=== PATIENT | male | born 1980 | race Caucasian/White ===

== ENCOUNTER 2021-10-24 06:30 | Observation (INO) | payer SELFPAY ==
[~2021-10-24] VITALS: Ht 190 cm; Wt 96.3 kg
[2021-10-24] VITALS (9 sets, daily range): BP systolic 114–187; BP diastolic 67–107
--- NOTE | 2021-10-24 06:57 | ED Chest Pain ---
General Stated Complaint: BOTH ARMS HURTING,HAS HAD STINT PUT IN Source: patient Exam Limitations: no limitations History of Present Illness Date Seen by Provider: Oct 24, 2021 Time Seen by Provider: 06:39 Initial Comments The patient presents to the ER by private conveyance from home with chief complaint about half an hour prior to arrival he began to experience pain running up and down both his arms. He says he is experienced this a few months ago at [place] and was told he was having a stress-induced heart attack. He has had a stent a year or 2 ago at [place]. He does not have a recovery analyst or primary care doctor they have tried 3 different PCPs locally to get him established. He does take Coreg, atorvastatin and lisinopril. He has a history of hypertension, hyperlipidemia, diabetes. He was intolerant to metformin and glipizide. He is not taking anything else for diabetes at this time. He smokes about a pack of cigarettes per day. He is not having nausea fever chills cough shortness of air or exertional dyspnea. His pain was initially a 10 out of 10. He did take his morning medications as well as 81 mg of aspirin. He also noted his blood pressure was high around 220 systolic. Allergies and Home Medications Allergies Coded Allergies: No Known Drug Allergies (Unverified , 10/24/21) Patient Home Medication List Home Medication List Reviewed: Yes Review of Systems Review of Systems Constitutional: No chills, No diaphoresis EENTM: No Blurred Vision, No Double Vision Respiratory: Denies Cough, Denies Shortness of Air Cardiovascular: Chest Pain; Denies Lightheadedness, Denies Palpitations Gastrointestinal: Denies Abdominal Pain, Denies Constipated, Denies Diarrhea, Denies Nausea Genitourinary: Denies Burning, Denies Discharge Musculoskeletal: No back pain, No joint pain Psychiatric/Neurological: Denies Anxiety, Denies Depressed All Other Systems Reviewed Negative Unless Noted: Yes Past Vwtnoud-Kailje-Xgsunv Hx Patient Social History Tobacco Use?: Yes Smoking Status: Current Everyday Smoker Use of E-Cig and/or Vaping dev: No Substance use?: No Alcohol Use?: Yes Alcohol type: Beer Alcohol Frequency: Daily (6/day) Physical Exam Vital Signs Vital Signs - First Documented 10/24/21 06:55 Pulse 104 Resp 20 B/P (MAP) 199/122 (147) Pulse Ox 94 O2 Delivery Room Air Capillary Refill : Height, Weight, BMI Height: '" Weight: lbs. oz. kg; BMI Method: General Appearance: Anxious, Mild Distress HEENT: PERRL/EOMI, Pharynx Normal, Moist Mucous Membranes Neck: Full Range of Motion, Normal Inspection Respiratory: Chest Non Tender, Lungs Clear, Normal Breath Sounds, No Accessory Muscle Use, No Respiratory Distress Cardiovascular: Regular Rate, Rhythm, No Edema, Normal Peripheral Pulses Gastrointestinal: Normal Bowel Sounds, Non Tender, Soft Extremity: Normal Capillary Refill, Normal Inspection, No Pedal Edema Neurologic/Psychiatric: Alert, Oriented x3, Normal Mood/Affect Skin: Normal Color, Warm/Dry Progress/Results/Core Measures Results/Orders Lab Results Laboratory Tests Test 10/24/21 06:50 Range/Units White Blood Count 7.5 4.3-11.0 10^3/uL Red Blood Count 5.75 H 4.30-5.52 10^6/uL Hemoglobin 18.6 H 13.3-17.7 g/dL Hematocrit 53 40-54 % Mean Corpuscular Volume 92 80-99 fL Mean Corpuscular Hemoglobin 32 25-34 pg Mean Corpuscular Hemoglobin Concent 35 32-36 g/dL Red Cell Distribution Width 13.0 10.0-14.5 % Platelet Count 221 130-400 10^3/uL Mean Platelet Volume 10.5 9.0-12.2 fL Immature Granulocyte % (Auto) 0 % Neutrophils (%) (Auto) 68 42-75 % Lymphocytes (%) (Auto) 24 12-44 % Monocytes (%) (Auto) 6 0-12 % Eosinophils (%) (Auto) 1 0-10 % Basophils (%) (Auto) 0 0-10 % Neutrophils # (Auto) 5.1 1.8-7.8 10^3/uL Lymphocytes # (Auto) 1.8 1.0-4.0 10^3/uL Monocytes # (Auto) 0.5 0.0-1.0 10^3/uL Eosinophils # (Auto) 0.1 0.0-0.3 10^3/uL Basophils # (Auto) 0.0 0.0-0.1 10^3/uL Immature Granulocyte # (Auto) 0.0 0.0-0.1 10^3/uL Prothrombin Time 12.4 12.2-14.7 SEC INR Comment 0.9 0.8-1.4 Activated Partial Thromboplast Time 29 24-35 SEC Sodium Level 142 135-145 MMOL/L Potassium Level 3.8 3.6-5.0 MMOL/L Chloride Level 105 98-107 MMOL/L Carbon Dioxide Level 21 21-32 MMOL/L Anion Gap 16 H 5-14 MMOL/L Blood Urea Nitrogen 12 7-18 MG/DL Creatinine 0.87 0.60-1.30 MG/DL Estimat Glomerular Filtration Rate 110 BUN/Creatinine Ratio 14 Glucose Level 169 H 70-105 MG/DL Calcium Level 9.6 8.5-10.1 MG/DL Corrected Calcium 9.3 8.5-10.1 MG/DL Magnesium Level 1.8 1.6-2.4 MG/DL Total Bilirubin 0.7 0.1-1.0 MG/DL Aspartate Amino Transf (AST/SGOT) 22 5-34 U/L Alanine Aminotransferase (ALT/SGPT) 25 0-55 U/L Alkaline Phosphatase 72 40-136 U/L Myoglobin 53.5 10.0-92.0 NG/ML Troponin I < 0.028 <0.028 NG/ML Total Protein 6.9 6.4-8.2 GM/DL Albumin 4.4 3.2-4.5 GM/DL My Orders Orders - ZOË DELGADO Cbc With Automated Diff (10/24/21 06:57) Magnesium (10/24/21 06:57) Chest 1 View, Ap/Pa Only (10/24/21 06:57) Ekg Tracing (10/24/21 06:57) Comprehensive Metabolic Panel (10/24/21 06:57) Myoglobin Serum (10/24/21 06:57) Protime With Inr (10/24/21 06:57) Partial Thromboplastin Time (10/24/21 06:57) O2 (10/24/21 06:57) Monitor-Rhythm Ecg Trace Only (10/24/21 06:57) Lipid Panel (10/25/21 06:00) Ed Iv/Invasive Line Start (10/24/21 06:57) Troponin I Elle (10/24/21 06:57) Nitroglycerin 0.4 Mg Btl 25's (Nitrostat (10/24/21 07:00) Aspirin Chewable Tablet (Baby Aspirin Ch (10/24/21 07:00) Ekg Tracing (10/24/21 08:06) Medications Given in ED Current Medications Medications Dose Ordered Sig/Lorie Route Start Time Stop Time Status Last Admin Dose Admin Aspirin 243 mg ONCE ONCE PO 10/24/21 07:00 10/24/21 07:01 DC 10/24/21 07:23 243 MG Vital Signs/I&O 10/24/21 06:55 Pulse 104 Resp 20 B/P (MAP) 199/122 (147) Pulse Ox 94 O2 Delivery Room Air Progress Progress Note : Time: 06:55 Progress Note Given his significant history there is concern for ACS so we will give him 243 mg of aspirin, nitroglycerin, check labs. Because of the recent notes of his discomfort he will need an observation stay, heart score is at least 4 points even with a negative initial troponin. This puts him at high risk for early Mace. Initial ECG Impression Date: Oct 24, 2021 Initial ECG Impression Time: 06:39 Initial ECG Rate: 103 Initial ECG Rhythm: Normal Sinus Initial ECG Intervals: Normal Initial ECG Impression: Normal Initial ECG Comparisson: No Previous ECG Available Comment Sinus tachycardia, LVH, no clinically relevant ST elevation but there is some slurring of the ST segment in the anterior leads picked up by the machine. EKG : EKG Time: 08:08 Rate: 78 Rhythm: Normal Sinus Intervals: Normal, QT (476) ECG Comparisson: Unchanged ECG Impression: Nonspecific Changes Comment Sinus rhythm with possible early repolarization artifact causing some upward slanting of the ST segment in the anterior leads seen on previous EKG from earlier today. No other clinically relevant ST elevation or depression. Diagnostic Imaging Diagonstic Imaging: Xray Plain Films/CT/US/NM/MRI: chest Comments No acute cardiopulmonary process on 1 view chest x-ray. [facility], [place] NAME: [facility] REC#: [id number] PT STATUS: REG ER : 1980 PHYSICIAN: ZOË DELGADO MD ADMIT DATE: 10/24/21/ER Draft Date of Exam:10/24/21 CHEST 1 VIEW, AP/PA ONLY INDICATION: Shortness of breath. FINDINGS: The lungs are clear. No failure, effusion or pneumothorax. No free air beneath the diaphragms. Cardiomediastinal and hilar contours normal. IMPRESSION: Normal frontal chest x-ray. Dictated on workstation # [id number] Dict: 10/24/21 0749 Trans: 10/24/21 0752 FERNANDO [id number] Interpreted by: MARLIN LLANES Electronically signed by: Reviewed: Reviewed by Me Departure Communication (Admissions) Time/Spoke to Admitting Phy: 07:50 Discussed the case with Dr. Meza agrees to observe the patient with consult to cardiology. Time/Spoke to Consulting Phy: 07:47 Discussed the case with Dr. Campbell and he agrees to consult on the case if medicine will observe. Impression Primary Impression: Unstable angina Additional Impression: Hypertensive urgency, malignant Disposition: ADMITTED INPATIENT Condition: Stable Admissions Decision to Admit Reason: Admit from ER (General) Decision to Admit/Date: Oct 24, 2021 Time/Decision to Admit Time: 07:45 Departure-Patient Inst. Referrals: NO,LOCAL PHYSICIAN (PCP/Family) Primary Care Physician ZOË DELGADO Oct 24, 2021 06:57
[2021-10-24] MEDS ORDERED: NITROGLYCERIN 0.4 MG SL TABS BTL 25'S SL PRN ×2 (07:00→09:00)
[2021-10-24] MEDS ORDERED: ASPIRIN 81 MG CHEW (CHILDREN'S ASA) PO ONE (07:00)
[2021-10-24 07:07] LABS: BASOPHILS % (AUTO) 0 % (0-10); EOSINOPHILS # (AUTO) 0.1 10^3/uL (0.0-0.3); EOSINOPHILS % (AUTO) 1 % (0-10); HEMATOCRIT 53 % (40-54); HEMOGLOBIN 18.6 g/dL (13.3-17.7); LYMPHOCYTES # (AUTO) 1.8 10^3/uL (1.0-4.0); LYMPHOCYTES % (AUTO) 24 % (12-44); MEAN CORPUSCULAR HEMOGLOBIN 32 pg (25-34); MEAN CORPUSCULAR HGB CONC 35 g/dL (32-36); MEAN CORPUSCULAR VOLUME 92 fL (80-99); MEAN PLATELET VOLUME 10.5 fL (9.0-12.2); MONOCYTES # (AUTO) 0.5 10^3/uL (0.0-1.0); MONOCYTES % (AUTO) 6 % (0-12); NEUTROPHILS # (AUTO) 5.1 10^3/uL (1.8-7.8); NEUTROPHILS % (AUTO) 68 % (42-75); PLATELET COUNT 221 10^3/uL (130-400); WHITE BLOOD COUNT 7.5 10^3/uL (4.3-11.0)
[2021-10-24 07:12] LABS: ALBUMIN 4.4 GM/DL (3.2-4.5); POTASSIUM 3.8 MMOL/L (3.6-5.0)
[2021-10-24 07:13] LABS: CALCIUM 9.6 MG/DL (8.5-10.1)
[2021-10-24 07:14] LABS: TOTAL PROTEIN 6.9 GM/DL (6.4-8.2)
[2021-10-24 07:16] LABS: BILIRUBIN,TOTAL 0.7 MG/DL (0.1-1.0)
[2021-10-24 07:18] LABS: CREATININE SERUM 0.87 MG/DL (0.60-1.30); INR 0.9 (0.8-1.4); PROTHROMBIN TIME PATIENT 12.4 SEC (12.2-14.7)
[2021-10-24 07:20] LABS: MAGNESIUM 1.8 MG/DL (1.6-2.4)
--- NOTE | 2021-10-24 07:52 | Diagnostic Imaging Report ---
INDICATION: Shortness of breath. FINDINGS: The lungs are clear. No failure, effusion or pneumothorax. No free air beneath the diaphragms. Cardiomediastinal and hilar contours normal. IMPRESSION: Normal frontal chest x-ray. Dictated by: Dictated on workstation # [id number]
--- NOTE | 2021-10-24 08:41 | Consultation-Cardiology ---
HPI-Cardiology Cardiology Consultation: Date of Consultation 10/24/21 Date of Admission 10/24/21 Attending Physician Mendy Rice MD Admitting Physician No,Local Physician Consulting Physician PHAN MALDONADO JR, MD HPI: Time Seen by a Provider: 08:37 Chief Complaint: Reason for consultation: Bilateral arm pain. I had the pleasure of seeing Raza in the emergency room at [facility] in [place], [place] this morning. He has a known history of coronary artery disease with an acute myocardial infarction around 2015 with a drug- eluting stent to the left anterior descending coronary artery. At the time of his myocardial infarction, his symptom was feeling like there was a pile of weight sitting on his chest. Then in August of this year he developed bilateral arm pain. He ultimately ended up back in the same hospital where he had his stent. During that hospitalization he was told that he had a "stress heart attack". However, he did not undergo a stress test or cardiac catheterization during that hospitalization. He denies having any of the heavy feeling in his chest during that previous hospitalization. He then recently moved to [place]. 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 Earlier this morning he again developed bilateral shoulder and arm pain. He also felt as though his legs were weak. He denies any of the heavy feeling in his chest. He became concerned and came to the emergency room for further evaluation. He took an aspirin at home and when he arrived to the emergency room he was given 3 more chewable aspirin and his arm discomfort subsided. He now feels very weak. He felt some mild shortness of breath with this arm discomfort. He denies paroxysmal nocturnal dyspnea, orthopnea, palpitations, syncope, or ankle edema. Because of the arm discomfort and his history of coronary artery disease, a cardiology consultation was requested. He also reports that he had been on medication for hypertension, hyperlipidemia and type 2 diabetes mellitus in the past. However, the last time he saw his previous primary care physician before moving to [place], his medications were all doubled and he developed side effects and stopped all of his medications except for aspirin. Certain portions of this document may have been dictated utilizing voice recognition technology. Inherent to this technology, typographical and grammatical errors may exist. As much as I am diligent to identify and correct these mistakes, some errors may remain in the document. Review of Systems-Cardiology Review of Systems Other comments Review of 10 organ systems is as per the history of present illness, otherwise negative. All Other Systems Reviewed Negative Unless Noted: Yes JXR-Gpqtmo-Xhwyjf Hx Patient Social History Smoking Status: Current Everyday Smoker Have you traveled recently?: No Alcohol Use?: Yes Past Medical History PMH As described under Assessment. Family Medical History Family Medical History: His father had a myocardial infarction and has a stent in a carotid artery. Allergies and Home Medications Allergies Coded Allergies: glipizide (Verified Adverse Reaction, Unknown, gi upset, 10/24/21) metformin (Verified Adverse Reaction, Unknown, gi upset, 10/24/21) Patient Home Medication List Home Medication List Reviewed: Yes Aspirin (Aspirin EC) 81 Mg Tablet.dr, 81 MG PO DAILY, (Reported) Entered as Reported by: LINDSEY KAY on 10/24/211499 Last Action: Reviewed Atorvastatin Calcium (Atorvastatin Calcium) 40 Mg Tablet, 40 MG PO HS, (Reported) Entered as Reported by: LINDSEY KAY on 10/24/211499 Last Action: Reviewed Carvedilol (Carvedilol) 6.25 Mg Tablet, 6.25 MG PO BID, (Reported) Entered as Reported by: LINDSEY KAY on 10/24/211499 Last Action: Reviewed Ibuprofen (Ibuprofen) 200 Mg Capsule, 400-600 MG PO Q8H PRN for PAIN-MILD (1-4), (Reported) Entered as Reported by: LINDSEY KAY on 10/24/211499 Last Action: Reviewed Lisinopril (Lisinopril) 20 Mg Tablet, 20 MG PO DAILY, (Reported) Entered as Reported by: LINDSEY KAY on 10/24/211499 Last Action: Reviewed Tadalafil (Tadalafil) 2.5 Mg Tablet, 2.5 MG PO UD PRN for ED, (Reported) Entered as Reported by: LINDSEY KAY on 10/24/211499 Last Action: Reviewed Exam Vital Signs Vital Signs Date Time Temp Pulse Resp B/P (MAP) Pulse Ox O2 Delivery O2 Flow Rate FiO2 10/24/21 15:46 37.2 77 18 145/80 (101) 98 Room Air Physical Exam General: Alert. No acute distress. Well nourished and appears stated age. Eye: Extraocular movements are intact. Conjunctivae are clear. There are no xanthelasma. HENT: Normocephalic. Atraumatic. Carotid pulsations 2/2 without bruits. Neck: Jugular venous pressure does not appear elevated. No thyromegaly appreciated. Respiratory: Lungs are clear to auscultation. Respirations are non-labored. Breath sounds are equal. Symmetrical chest wall expansion. Cardiovascular: Normal rate. Regular rhythm. No murmur. No gallop. Point of maximal impulse is not appear displaced. Good pulses equal in all extremities. No edema. Gastrointestinal: Soft. Normal bowel sounds. Skin: Skin turgor is normal. There is no pallor. Musculoskeletal: No kyphosis or scoliosis appreciated. Neurologic: Alert and oriented to person, place, time. Cranial nerves 3-12 appear grossly intact. The patient has good motor tone strength in the upper and lower extremities bilaterally. Psychiatric: Cooperative. Appropriate mood & affect. Labs Laboratory Tests Test 10/24/21 06:50 10/24/21 10:16 10/24/21 10:50 10/24/21 14:23 Range/Units White Blood Count 7.5 4.3-11.0 10^3/uL Red Blood Count 5.75 H 4.30-5.52 10^6/uL Hemoglobin 18.6 H 13.3-17.7 g/dL Hematocrit 53 40-54 % Mean Corpuscular Volume 92 80-99 fL Mean Corpuscular Hemoglobin 32 25-34 pg Mean Corpuscular Hemoglobin Concent 35 32-36 g/dL Red Cell Distribution Width 13.0 10.0-14.5 % Platelet Count 221 130-400 10^3/uL Mean Platelet Volume 10.5 9.0-12.2 fL Immature Granulocyte % (Auto) 0 % Neutrophils (%) (Auto) 68 42-75 % Lymphocytes (%) (Auto) 24 12-44 % Monocytes (%) (Auto) 6 0-12 % Eosinophils (%) (Auto) 1 0-10 % Basophils (%) (Auto) 0 0-10 % Neutrophils # (Auto) 5.1 1.8-7.8 10^3/uL Lymphocytes # (Auto) 1.8 1.0-4.0 10^3/uL Monocytes # (Auto) 0.5 0.0-1.0 10^3/uL Eosinophils # (Auto) 0.1 0.0-0.3 10^3/uL Basophils # (Auto) 0.0 0.0-0.1 10^3/uL Immature Granulocyte # (Auto) 0.0 0.0-0.1 10^3/uL Prothrombin Time 12.4 12.2-14.7 SEC INR Comment 0.9 0.8-1.4 Activated Partial Thromboplast Time 29 24-35 SEC Sodium Level 142 135-145 MMOL/L Potassium Level 3.8 3.6-5.0 MMOL/L Chloride Level 105 98-107 MMOL/L Carbon Dioxide Level 21 21-32 MMOL/L Anion Gap 16 H 5-14 MMOL/L Blood Urea Nitrogen 12 7-18 MG/DL Creatinine 0.87 0.60-1.30 MG/DL Estimat Glomerular Filtration Rate 110 BUN/Creatinine Ratio 14 Glucose Level 169 H 70-105 MG/DL Calcium Level 9.6 8.5-10.1 MG/DL Corrected Calcium 9.3 8.5-10.1 MG/DL Magnesium Level 1.8 1.6-2.4 MG/DL Total Bilirubin 0.7 0.1-1.0 MG/DL Aspartate Amino Transf (AST/SGOT) 22 5-34 U/L Alanine Aminotransferase (ALT/SGPT) 25 0-55 U/L Alkaline Phosphatase 72 40-136 U/L Myoglobin 53.5 10.0-92.0 NG/ML Troponin I < 0.028 0.028 < 0.028 <0.028 NG/ML Total Protein 6.9 6.4-8.2 GM/DL Albumin 4.4 3.2-4.5 GM/DL Glucometer 296 H 70-110 MG/DL Test 10/24/21 15:15 Range/Units Glucometer 142 H 70-110 MG/DL Radiology ECHOCARDIOGRAM 1. Left ventricle: The cavity size is normal. There is mild concentric hypertrophy. Systolic function is mildly reduced. The estimated ejection fraction is 40-45%. Doppler parameters are consistent with abnormal left ventricular relaxation (grade 1 diastolic dysfunction). 2. Regional wall motion abnormality: Akinesis of the apical septal myocardium. 3. Right atrium: The right atrium is mildly dilated at 19 cm. 4. Aortic valve: There is mild aortic valve sclerosis. 5. Atrial septum: The intra-atrial septum is aneurysmal without definitive evidence of a a defect or shunt. 6. Pulmonary arteries: The pulmonary artery pressure cannot be estimated on this study due to inadequate tricuspid regurgitant envelope. ECG Impression ECG Comment Sinus rhythm with nonspecific anterior ST elevation V1-V2. Probable left ventricular hypertrophy. Diagnosis/Problems Diagnosis/Problems (1) Unstable angina Status: Acute Assessment & Plan: His symptoms sound concerning for possible unstable angina. However, he has had 2 negative troponin levels. His echocardiogram shows mild left ventricular systolic dysfunction with an apical wall motion abnormality. I suspect there is a good chance he is having noncardiac chest pain, possibly due to a musculoskeletal disorder or gastroesophageal reflux disease. I will start him on a proton pump inhibitor. Nonetheless, in light of his history, I recommend further evaluation with a nuclear stress test. He had eaten today so we could not perform the test today. I have this scheduled for first thing tomorrow morning. If his stress test is unremarkable, he can be discharged home tomorrow. He should continue on aspirin. In light of the hypertension, I will also start him on low-dose beta-helen. (2) Hypertensive urgency Assessment & Plan: I have started him on low-dose beta-helen. I am concerned about high doses of medication given his history of adverse reactions to medications. (3) Cardiomyopathy Assessment & Plan: His echocardiogram shows mild left ventricular systolic dysfunction. I will start him on carvedilol. I will eventually plan to start him on REYNA inhibitor or ARB but I am concerned about adding too many medications all at once given his previous history of medication noncompliance due to adverse reactions. (4) Mixed hyperlipidemia Assessment & Plan: A lipid panel has been ordered. I suspect he will benefit from at least a low-dose of statin medication. (5) Type 2 diabetes mellitus with complication Assessment & Plan: This is being managed by the hospitalist. (6) Cigarette smoker Assessment & Plan: He needs to quit smoking. He was counseled in this regard. PHAN MALDONADO JR, MD Oct 24, 2021 08:41
[2021-10-24] MEDS ORDERED: ACETAMINOPHEN 325 MG TABLET PO PRN (09:00)
[2021-10-24] MEDS ORDERED: ONDANSETRON 4 MG/2 ML (SDV) Z0FRAN IVP PRN (09:00)
[2021-10-24] MEDS ORDERED: LORazepam 0.5 MG (ATIVAN) TABLET PO PRN (09:00)
[2021-10-24] MEDS ORDERED: morphine INJ 4 MG/ML 1 ML (VIAL/SYRINGE) IV PRN (09:00)
[2021-10-24] MEDS ORDERED: CATHETER FLUSH 10 ML SYR IV PRN (09:00)
[2021-10-24] MEDS ORDERED: inSUlin ASPART (NovoLOG) 1 UNIT/0.01 ML (CHARGE PER UNIT) SC SCH (11:00)
[2021-10-24] MEDS: inSUlin ASPART (NovoLOG) 1 UNIT/0.01 ML (CHARGE PER UNIT) SC SCH ×4 (11:44→20:49)
[2021-10-24] MEDS ORDERED: NICOTINE 7 MG (NICODERM) PATCH TD NR (13:30)
--- NOTE | 2021-10-24 13:54 | History & Physical-Hospitalist ---
History of Present Illness HPI/Chief Complaint Patient is a 41-year-old male with past medical history of coronary artery disease, hypertension, nonsymptomatic diabetes type 2, hyperlipidemia who presented to the emergency department due to severe left arm pain. He has a history of heart attack in 2016. He has not seen a frozen foods manager since 2016 and has not followed with a primary care doctor for a couple of years either. He was off all of his medications for those couple of years as well. He has been on no medications until August of this year when he was admitted in [facility] due to another heart attack. states that in August he had no work-up, no stress test, no echo, and no follow-up. He was started on Coreg, Lipitor, metformin, glipizide and discharged from the hospital. Since that time he has lost 30 pounds unintentionally and has had multiple side effects secondary to starting those medications they believe. He complains of diffuse muscle aches and erectile dysfunction as well. He reports he smokes 1 to 1-1/2 packs/day. They recently moved to [facility] and are attempting to establish with local physicians. They do have an appointment with Dr. Tucker tomorrow. Source: patient, family Exam Limitations: no limitations Date Seen 10/24/21 Time Seen by a Provider: 13:54 Attending Physician Luis Antonio Rice MD PCP No,Local Physician Referring Physician Date of Admission Oct 24, 2021 at 07:50 Home Medications & Allergies Home Medications Reviewed patient Home Medication Reconciliation performed by pharmacy medication reconciliations reactor technician and/or nursing. Patients Allergies have been reviewed. Allergies Allergies Coded Allergies glipizide (Verified Adverse Reaction, Unknown, gi upset, 10/24/21) metformin (Verified Adverse Reaction, Unknown, gi upset, 10/24/21) Past Jevbnsl-Mabljq-Gjtudf Hx Patient Social History Marrital Status: Tobacco Use?: Yes Tobacco type used: Cigarettes Smoking Status: Current Everyday Smoker Use of E-Cig and/or Vaping dev: No Substance use?: No Alcohol Use?: Yes Alcohol type: Beer Alcohol Frequency: Daily Immunizations Up To Date First/Initial COVID19 Vaccinat: Unvaccinated Current Status Communicates: Verbally Primary Language: [place] Preferred Spoken Language: [place] Is interpretation needed?: No Sensory deficits: Vision impairment Implanted or Applied Medical D: Stents Past Medical History Surgeries: Coronary Stent Heart Attack, High Cholesterol, Hypertension Diabetes, Non-Insulin dep Family Medical History Reviewed Nursing Family Hx Review of Systems Constitutional: No chills, No fever EENTM: no symptoms reported Respiratory: no symptoms reported Cardiovascular: see HPI; No chest pain Gastrointestinal: see HPI, other (weight loss) Genitourinary: see HPI Musculoskeletal: muscle pain, muscle weakness Skin: no symptoms reported Psychiatric/Neurological: Anxiety Physical Exam Physical Exam Vital Signs Vital Signs - First Documented 10/24/21 10/24/21 06:55 15:46 Temp 37.2 Pulse 104 Resp 20 B/P (MAP) 199/122 (147) Pulse Ox 94 O2 Delivery Room Air Capillary Refill : Less Than 3 Seconds Height, Weight, BMI Height: '" Weight: lbs. oz. kg; 26.67 BMI Method: General Appearance: No Apparent Distress, WD/WN, Anxious HEENT: PERRL/EOMI, Moist Mucous Membranes; No Scleral Icterus (L), No Scleral Icterus (R) Neck: Normal Inspection, Supple Respiratory: Lungs Clear, No Accessory Muscle Use, No Respiratory Distress Cardiovascular: Regular Rate, Rhythm, No Murmur Gastrointestinal: Normal Bowel Sounds, Non Tender, Soft Extremity: Normal Capillary Refill, No Calf Tenderness, No Pedal Edema Neurologic/Psychiatric: Alert, Oriented x3, Normal Mood/Affect; No Aphasia, No Facial Droop Skin: Normal Color, Warm/Dry Results Results/Procedures Labs Laboratory Tests 10/24/21 06:50 10/25/21 05:41 Patient resulted labs reviewed. Imaging: Reviewed Imaging Report Imaging [facility], [place] NAME: [facility] REC#: [id number] PT STATUS: ADM Cielo : 1980 PHYSICIAN: ZOË DELGADO MD ADMIT DATE: 10/24/21 Signed Date of Exam:10/24/21 CHEST 1 VIEW, AP/PA ONLY INDICATION: Shortness of breath. FINDINGS: The lungs are clear. No failure, effusion or pneumothorax. No free air beneath the diaphragms. Cardiomediastinal and hilar contours normal. IMPRESSION: Normal frontal chest x-ray. Dictated by: Dictated on workstation # [id number] Dict: 10/24/21 0749 Trans: 10/24/21 1145 FERNANDO [id number] Interpreted by: MARLIN LLANES Electronically signed by: MARLIN LLANES 10/24/21 1145 Assessment/Plan Admission Diagnosis Chest pain Admission Status: Observation Assessment and Plan Chest pain CAD HTN HLD Tobacco abuse Cardiology consulted, appreciate recs Troponin negative x2 Echo ordered, completed but report pending Planning for stress test tomorrow Patient has had many side effects from medications that were started after August admission Discussed indications for certain cardiac meds and that pending tests results some may still be indicated but will have to see what his test results show and then have shared decision making conversation NIDDMII Has had multiple issues since starting Glipizide and Metformin Again discussed their indications and benefits but given side effects will hold Insulin was ordered in ER for BS of 296 but they declined given he had just eaten We discussed that if it continues to rise we'll have to discuss insulin use but will just monitor for now as they are committed to lifestyle changes to control BS Erectile dysfunction Has an appt with Dr Emmanuel tomorrow at 4pm that they would very much like to keep If testing ok will plan to DC for that appt unless further inpatient work up is warranted Anxiety Pt reports anxiety due to having to stay in room Discussed risks of going outside and not being closely monitored- he expressed understanding and signed paperwork to go outside LUIS ANTONIO RICE MD Oct 24, 2021 13:54
[2021-10-24] MEDS ORDERED: ATOR40TA70 PO (15:00)
[2021-10-24] MEDS ORDERED: LISI20TA26 PO (15:00)
[2021-10-24] MEDS ORDERED: TADA2.5T3 PO (15:00)
[2021-10-24] MEDS ORDERED: CARV6.252 PO (15:00)
[2021-10-24] MEDS ORDERED: ASPI-1238 PO (15:00)
[2021-10-24] MEDS ORDERED: IBUP-2185 PO (15:00)
[2021-10-24] MEDS: PANTOPRAZOLE 40 MG (PROTONIX) TAB PO NR ×2 (18:37→18:43)
[2021-10-24] MEDS: CATHETER FLUSH 10 ML SYR IV SCH ×2 (18:45→22:00)
[2021-10-24] MEDS: IBUPROFEN 600 MG (MOTRIN) TAB PO SCH (22:58)
[2021-10-25] VITALS (8 sets, daily range): BP systolic 161–179; BP diastolic 94–106
[2021-10-25] MEDS: IBUPROFEN 600 MG (MOTRIN) TAB PO SCH ×3 (05:00→17:15)
[2021-10-25] MEDS: CATHETER FLUSH 10 ML SYR IV SCH ×3 (05:15→21:54)
[2021-10-25 05:54] LABS: BASOPHILS % (AUTO) 0 % (0-10); EOSINOPHILS # (AUTO) 0.1 10^3/uL (0.0-0.3); EOSINOPHILS % (AUTO) 1 % (0-10); HEMATOCRIT 47 % (40-54); HEMOGLOBIN 16.3 g/dL (13.3-17.7); LYMPHOCYTES # (AUTO) 2.5 10^3/uL (1.0-4.0); LYMPHOCYTES % (AUTO) 29 % (12-44); MEAN CORPUSCULAR HEMOGLOBIN 32 pg (25-34); MEAN CORPUSCULAR HGB CONC 34 g/dL (32-36); MEAN CORPUSCULAR VOLUME 93 fL (80-99); MEAN PLATELET VOLUME 10.9 fL (9.0-12.2); MONOCYTES # (AUTO) 0.6 10^3/uL (0.0-1.0); MONOCYTES % (AUTO) 7 % (0-12); NEUTROPHILS # (AUTO) 5.4 10^3/uL (1.8-7.8); NEUTROPHILS % (AUTO) 63 % (42-75); PLATELET COUNT 188 10^3/uL (130-400); WHITE BLOOD COUNT 8.6 10^3/uL (4.3-11.0)
[2021-10-25] MEDS: inSUlin ASPART (NovoLOG) 1 UNIT/0.01 ML (CHARGE PER UNIT) SC SCH (06:00)
[2021-10-25 06:05] LABS: POTASSIUM 3.6 MMOL/L (3.6-5.0)
[2021-10-25 06:06] LABS: CALCIUM 8.7 MG/DL (8.5-10.1)
[2021-10-25 06:10] LABS: CREATININE SERUM 0.78 MG/DL (0.60-1.30)
[2021-10-25] MEDS ORDERED: REGADENOSON 0.4 MG/5 ML SYR (LEXISCAN) IV ONE ×2 (08:06→08:15)
--- NOTE | 2021-10-25 09:57 | NUCLEAR STRESS TEST ---
REGADENOSON NUCLEAR STRESS Date of procedure: 10/25/2021. Primary care provider: No primary care physician Admitting physician: Mendy Rice MD. INDICATION: Unstable angina. BASELINE ELECTROCARDIOGRAM: Sinus rhythm with nonspecific intraventricular conduction delay and diffuse, nonspecific ST-T wave changes. STRESS TEST PROCEDURE: This was initially intended to be an exercise nuclear stress test but the patient could not attain his target heart rate. As such, we change this over to a regadenoson nuclear stress test. The patient was administered 0.4 mg of intravenous Regadenoson. The resting heart rate was 74 bpm and the peak heart rate was 100 bpm. The resting blood pressure was 172/91 mmHg and the minimum blood pressure was 143/96 mmHg. This represents a normal heart rate and a normal blood pressure response to Regadenoson. The test was stopped due to the protocol. There was no chest discomfort during the test. There were no arrhythmias during the test. There were no significant stress induced electrocardiogram changes. NUCLEAR PROCEDURE: The patient was administered 10.2 mCi of intravenous techn etium 99m Tetrofosmin at rest for the rest images. The patient was subsequently administered 32.1 mCi of intravenous technetium 99m Tetrofosmin at peak stress for the stress images. Following an appropriate wait after each injection, imaging was obtained. The images were subsequently processed and reformatted in the usual views. Gated imaging was obtained. The image quality was adequate with a mild degree of gastrointestinal artifact. CT attenuation correction was used as a adjunct to standard imaging. Both the corrected and uncorrected images were reviewed for interpretation. NUCLEAR RESULTS: There was a large, severe intensity, partially reversible mid to distal anterior and apical defect with a moderate amount of inducible ischemia with a summed stress score of 20 and a summed difference score of 8. The left ventricle was dilated with an end-diastolic volume of 180 mL and an end-systolic volume of 124 mL. There was no evidence of transient ischemic dilatation. The TID ratio was 1.22. There was moderate global hypokinesis with a calculated ejection fraction of 31%. IMPRESSION: 1. Normal heart rate and blood pressure response to regadenoson. 2. There was no chest discomfort, arrhythmias, or electrocardiogram changes during the test. 3. The left ventricle was dilated. 4. There was a large, severe intensity, partially reversible mid to distal anterior and apical defect with a moderate amount of inducible ischemia with a summed stress score of 20 and a summed difference score of 8. 5. There was moderate global hypokinesis with a calculated ejection fraction of 31%. 6. This is an abnormal result representing an overall high risk for possible future coronary ischemic events. Clinical correlation is suggested. Certain portions of this document may have been dictated utilizing voice recognition technology. Inherent to this technology, typographical and grammatical errors may exist. As much as I am diligent to identify and correct these mistakes, some errors may remain in the document. PHAN MALDONADO JR, MD Oct 25, 2021 09:57
[2021-10-25] MEDS: PANTOPRAZOLE 40 MG (PROTONIX) TAB PO SCH (09:58)
[2021-10-25] MEDS: ASPIRIN E.C. 81 MG (ECOTRIN) TAB PO SCH (09:59)
--- NOTE | 2021-10-25 09:59 | Cardiology Progress Note ---
Progress Note-Cardiology Events since last exam Date Seen by Provider: Oct 25, 2021 Time Seen by Provider: 08:00 Events since last exam I am following him due to coronary artery disease with bilateral arm and lexii ulder pain. He states that his arm and shoulder discomfort has resolved. He feels very tired from a lack of sleep since being in the hospital. He denies dyspnea, palpitations, syncope, or ankle edema. We had him undergo a nuclear stress test earlier today and his legs became very weak during stage III of the treadmill protocol and his stress test was changed over to a pharmacological stress test. He and his seem to be focused more on medication side effects as opposed to his various medical illnesses. Certain portions of this document may have been dictated utilizing voice recognition technology. Inherent to this technology, typographical and grammatical errors may exist. As much as I am diligent to identify and correct these mistakes, some errors may remain in the document. Vitals Last set of Vitals Signs Vital Signs Labs Labs Laboratory Tests 10/25/21 05:41 Exam Vital Signs Vital Signs Date Time Temp Pulse Resp B/P (MAP) Pulse Ox O2 Delivery O2 Flow Rate FiO2 10/25/21 16:43 36.8 72 18 170/100 (123) 97 Room Air Physical Exam General: Alert. No acute distress. Eye: No xanthelasma. HENT: Normocephalic. Neck: Jugular venous pressure does not appear elevated. Respiratory: Lungs are clear to auscultation. Respirations are non-labored. Breath sounds are equal. Symmetrical chest wall expansion. Cardiovascular: Normal rate. Regular rhythm. No murmur. No gallop. No edema. Gastrointestinal: Soft. Normal bowel sounds. Skin: Warm. Dry. Neurologic: Alert and oriented to person, place, time. Cranial nerves 3-11 grossly intact. Psychiatric: Cooperative. He is fairly anxious. Labs Laboratory Tests Test 10/24/21 18:55 10/24/21 20:35 10/25/21 05:41 10/25/21 10:41 Range/Units Troponin I < 0.028 <0.028 NG/ML Glucometer 260 H 156 H 70-110 MG/DL White Blood Count 8.6 4.3-11.0 10^3/uL Red Blood Count 5.10 4.30-5.52 10^6/uL Hemoglobin 16.3 13.3-17.7 g/dL Hematocrit 47 40-54 % Mean Corpuscular Volume 93 80-99 fL Mean Corpuscular Hemoglobin 32 25-34 pg Mean Corpuscular Hemoglobin Concent 34 32-36 g/dL Red Cell Distribution Width 12.9 10.0-14.5 % Platelet Count 188 130-400 10^3/uL Mean Platelet Volume 10.9 9.0-12.2 fL Immature Granulocyte % (Auto) 0 % Neutrophils (%) (Auto) 63 42-75 % Lymphocytes (%) (Auto) 29 12-44 % Monocytes (%) (Auto) 7 0-12 % Eosinophils (%) (Auto) 1 0-10 % Basophils (%) (Auto) 0 0-10 % Neutrophils # (Auto) 5.4 1.8-7.8 10^3/uL Lymphocytes # (Auto) 2.5 1.0-4.0 10^3/uL Monocytes # (Auto) 0.6 0.0-1.0 10^3/uL Eosinophils # (Auto) 0.1 0.0-0.3 10^3/uL Basophils # (Auto) 0.0 0.0-0.1 10^3/uL Immature Granulocyte # (Auto) 0.0 0.0-0.1 10^3/uL Sodium Level 140 135-145 MMOL/L Potassium Level 3.6 3.6-5.0 MMOL/L Chloride Level 105 98-107 MMOL/L Carbon Dioxide Level 22 21-32 MMOL/L Anion Gap 13 5-14 MMOL/L Blood Urea Nitrogen 11 7-18 MG/DL Creatinine 0.78 0.60-1.30 MG/DL Estimat Glomerular Filtration Rate 113 BUN/Creatinine Ratio 14 Glucose Level 124 H 70-105 MG/DL Calcium Level 8.7 8.5-10.1 MG/DL Triglycerides Level 166 H <150 MG/DL Cholesterol Level 182 < 200 MG/DL LDL Cholesterol Direct 119 1-129 MG/DL VLDL Cholesterol 33 5-40 MG/DL HDL Cholesterol 49 40-60 MG/DL Test 10/25/21 15:35 Range/Units Glucometer 135 H 70-110 MG/DL Radiology REGADENOSON NUCLEAR STRESS TEST (10/25/2021): 1. Normal heart rate and blood pressure response to regadenoson. 2. There was no chest discomfort, arrhythmias, or electrocardiogram changes during the test. 3. The left ventricle was dilated. 4. There was a large, severe intensity, partially reversible mid to distal anterior and apical defect with a moderate amount of inducible ischemia with a summed stress score of 20 and a summed difference score of 8. 5. There was moderate global hypokinesis with a calculated ejection fraction of 31%. 6. This is an abnormal result representing an overall high risk for possible future coronary ischemic events. Clinical correlation is suggested. Diagnosis/Problems Diagnosis/Problems (1) Unstable angina Status: Acute Assessment & Plan: His symptoms sound concerning for possible unstable angina. However, his troponin levels were negative. Nonetheless, his nuclear stress test showed a large, partly reversible anterior and apical defect with a moderate amount of inducible ischemia with a depressed ejection fraction. As such, I recommend further evaluation with a cardiac catheterization. I have explained the benefits and risks of the procedure to the patient and his . We will proceed with the test in the morning. (2) Hypertensive urgency Assessment & Plan: I have started him on low-dose beta-helen. I am concerned about high doses of medication given his history of adverse reactions to medications. Now he and his want to change the medication due to side effects from his carvedilol and lisinopril in the past. (3) Cardiomyopathy Assessment & Plan: His echocardiogram shows mild left ventricular systolic dysfunction and his nuclear stress test showed moderate left ventricular systolic dysfunction. I will change the carvedilol to metoprolol succinate and change lisinopril which she was taking at home over to losartan. This is assuming the patient and his will be agreeable. (4) Mixed hyperlipidemia Assessment & Plan: I recommend he continue atorvastatin which he was taking at home. (5) Type 2 diabetes mellitus with complication Assessment & Plan: This is being managed by the hospitalist. (6) Cigarette smoker Assessment & Plan: He needs to quit smoking. He was counseled in this regard. PHAN MALDONADO JR, MD Oct 25, 2021 09:59
[2021-10-25] MEDS ORDERED: NICOTINE 7 MG (NICODERM) PATCH TD ONE (10:15)
--- NOTE | 2021-10-25 12:59 | Progress Note - Hospitalist ---
Subjective HPI/CC On Admission Date Seen by Provider: Oct 25, 2021 Time Seen by Provider: 10:00 Patient is a 41-year-old male with past medical history of coronary artery disease, hypertension, nonsymptomatic diabetes type 2, hyperlipidemia who presented to the emergency department due to severe left arm pain. He has a h istory of heart attack in 2015. He has not seen a machine bander and cellophaner since 2017 and has not followed with a primary care doctor for a couple of years either. He was off all of his medications for those couple of years as well. He has been on no medications until August of this year when he was admitted in [facility] due to another heart attack. states that in August he had no work-up, no stress test, no echo, and no follow-up. He was started on Coreg, Lipitor, metformin, glipizide and discharged from the hospital. Since that time he has lost 30 pounds unintentionally and has had multiple side effects secondary to starting those medications they believe. He complains of d iffuse muscle aches and erectile dysfunction as well. He reports he smokes 1 to 1-1/2 packs/day. They recently moved to [facility] and are attempting to establish with local physicians. They do have an appointment with Dr. Tucker tomorrow. Subjective/Events-last exam Pt just back from stress test and informed it was abnormal. Dr Campbell at bedside as well. Discussed plan for a cath. Patient mostly just sitting in bed with his head hung. answers most questions. They were hopeful to leave to make it to Dr Emmanuel's appt but given need to stay they are worried about missing it. I called and spoke with Dr Emmanuel who will see them inpatient. Objective Exam Vital Signs Vital Signs Date Time Temp Pulse Resp B/P (MAP) Pulse Ox O2 Delivery O2 Flow Rate FiO2 10/25/21 11:25 36.4 76 18 171/104 (126) 99 Room Air Capillary Refill : Less Than 3 Seconds General Appearance: No Apparent Distress, WD/WN Respiratory: Lungs Clear, No Respiratory Distress Cardiovascular: Regular Rate, Rhythm, No Murmur Neurologic/Psychiatric: Alert, Oriented x3 Results/Procedures Lab Laboratory Tests 10/25/21 05:41 Patient resulted labs reviewed. Imaging: Reviewed Imaging Report Assessment/Plan Assessment and Plan Assess & Plan/Chief Complaint Chest pain CAD HTN HLD Tobacco abuse Cardiology consulted, appreciate recs Troponin negative x2 Echo with EF of 40% Stress test abnormal, cath recommended-planning for tomorrow Patient has had many side effects from medications that were started after August admission Continue coreg NIDDMII Has had multiple issues since starting Glipizide and Metformin Again discussed their indications and benefits but given side effects will hold Insulin was ordered but patient declined, fasting blood sugar was 124, DC-ed insulin order as he refuses Erectile dysfunction Has an appt with Dr Emmanuel today at 4pm Dr Emmanuel saw them today inpatient Anxiety Pt reports anxiety due to having to stay in room Discussed risks of going outside and not being closely monitored- he expressed understanding and signed paperwork to go outside Ativan LUIS ANTONIO Baltazar MD Oct 25, 2021 12:59
--- NOTE | 2021-10-25 13:20 | CONSULTATION REPORT ---
DATE OF SERVICE: 10/25/2021 ATTENDING PHYSICIAN: Dr. Rice. SUMMARY: A 41-year-old white man who was supposed to see me at the office today because of erectile dysfunction, was admitted to the hospital because of chest pain. He does have history of coronary artery disease, hypertension, type 2 diabetes, hyperlipidemia and history of heart attack in 2016, had a stent put previously, but he has not been followed up with cardiology well. MEDICATIONS: His home medications were reviewed. ALLERGIES: He has no known drug allergies. SOCIAL HISTORY: He is , still smokes cigarettes, drinks beer. PAST SURGICAL HISTORY: Coronary stent. FAMILY HISTORY: Noncontributory. REVIEW OF SYSTEMS: No other complaints. PHYSICAL EXAMINATION: VITAL SIGNS: Per chart. GENERAL: Well nourished, well developed, in no acute distress. HEENT: Head is normocephalic. ENT unremarkable. NECK: Supple, no bruits. CHEST: Clear, nontender. HEART: Regular rate and rhythm, no murmur. ABDOMEN: Soft, nontender. EXTREMITIES: Lower extremity, no edema or cyanosis. NEUROLOGIC: Grossly intact. Oriented x3. RECTAL: Deferred at this point. His labs and chest x-ray were reviewed. IMPRESSION: 1. Erectile dysfunction secondary to diabetes and atherosclerotic heart disease. 2. Medical illnesses per history. PLAN: I did have a long discussion with him and his about or what available for erectile dysfunction and that will be able to show him and give him brochure about at the office and also wanted to wait and see what the results of his cardiac workup come up with to make sure we do not jeopardize his cardiac status for his erectile dysfunction. They fully understand. We will see what the cardiac cath report tomorrow and manage accordingly. CC: Dr. Rice -- requested, unable to deliver. Job ID: [id number] DocumentID: [id number] Dictated Date: 10/25/2021 11:54:43 Financial Writer Date: 10/25/2021 13:19:37 Dictated By: DENY GLORIA MD
[2021-10-25] MEDS ORDERED: NICOTINE PATCH REMOVAL TP SCH (13:30)
[2021-10-25] MEDS ORDERED: LOSARTAN 25 MG (COZAAR) TAB PO SCH (16:45)
[2021-10-25] MEDS ORDERED: amLODIPine 10 MG (NORVASC) TAB PO ONE (20:45)
[2021-10-25] MEDS ORDERED: ROSUVASTATIN 20 MG (CRESTOR) TABLET PO SCH (21:00)
[2021-10-25] MEDS ORDERED: OXYMETAZOLINE (AFRIN) 0.05% NA 30 ML BTL PRN (22:45)
[2021-10-26 00:12] VITALS: BP 146/87
[2021-10-26 03:48] VITALS: BP 146/87
[2021-10-26] MEDS: CATHETER FLUSH 10 ML SYR IV SCH (05:12)
[2021-10-26] MEDS: IBUPROFEN 600 MG (MOTRIN) TAB PO SCH ×3 (05:12→11:00)
[2021-10-26 05:41] LABS: HEMATOCRIT 47 % (40-54); HEMOGLOBIN 16.3 g/dL (13.3-17.7); MEAN CORPUSCULAR HEMOGLOBIN 33 pg (25-34); MEAN CORPUSCULAR HGB CONC 35 g/dL (32-36); MEAN CORPUSCULAR VOLUME 94 fL (80-99); MEAN PLATELET VOLUME 11.2 fL (9.0-12.2); PLATELET COUNT 197 10^3/uL (130-400); WHITE BLOOD COUNT 9.7 10^3/uL (4.3-11.0)
[2021-10-26 06:00] LABS: CALCIUM 8.8 MG/DL (8.5-10.1)
[2021-10-26 06:04] LABS: CREATININE SERUM 0.78 MG/DL (0.60-1.30)
[2021-10-26 07:41] VITALS: BP 151/95
[2021-10-26] MEDS ORDERED: HEParin (CATH LAB) 2,000 ML IV ONE (07:56)
[2021-10-26] MEDS ORDERED: LIDOCAINE 1% INJ 20 ML VIAL ONE (07:56)
[2021-10-26] MEDS ORDERED: NS IV 1000 ML 0 ML ONE (07:56)
[2021-10-26] MEDS ORDERED: NS IV 1000 ML 1,000 ML IV ONE (08:00)
[2021-10-26] MEDS: ASPIRIN E.C. 81 MG (ECOTRIN) TAB PO SCH (08:02)
[2021-10-26] MEDS: PANTOPRAZOLE 40 MG (PROTONIX) TAB PO SCH (08:02)
[2021-10-26] MEDS ORDERED: LOSARTAN 25 MG (COZAAR) TAB PO SCH (09:00)
--- NOTE | 2021-10-26 09:42 | Pre-Op Note & Conscious Sedat ---
Pre-Operative Progress Note H&P Reviewed The H&P was reviewed, patient examined and no changes noted. Date H&P Reviewed: Oct 26, 2021 Time H&P Reviewed: 09:41 Pre-Op Diagnosis: Coronary artery with unstable angina and cardiomyopathy And abnormal stress test Conscious Sedation Pre-Proced Time 09:42 ASA Score 2 For ASA 3 and 4: Consider anesthesia and medical clearance. Also, for patients with a history of failed moderate sedation consider anesthesia. Airway Lungs Heart ASA score ASA 1: a normal healthy patient ASA 2: a patient with a mild systemic disease (mid diabetes, controlled hypertension, obesity ASA 3: a patient with a severe systemic disease that limits activity (angina, COPD, prior Myocardial infarction) ASA 4: a patient with an incapacitating disease that is a constant threat to life (CHF, renal failure) ASA 5: a moribund patient not expected to survive 24 hrs. (ruptured aneurysm) ASA 6: a declared brain- patient whose organs are being harvested. For emergent operations, add the letter E after the classification Mallampati Classification Grade 2 Sedation Plan Analgesia, Amnesia, Plan communicated to team members, Discussed options with patient/fam, Discussed risks with patient/fam The patient is an appropriate candidate to undergo the planned procedure, sedation, and anesthesia. The patient immediately re-assessed prior to indication. PHAN MALDONADO JR, MD Oct 26, 2021 09:42
--- NOTE | 2021-10-26 10:12 | Progress Note - Urology ---
Progress Note-Urology Progress Notes/Assess & Plan Progress/Assessment & Plan CARDIAC CATH IN 1 HOUR. OFFICE IN 1-2 WEEKS Final Diagnosis ED DENY GOLRIA MD Oct 26, 2021 10:12
[2021-10-26] MEDS ORDERED: MIDAZOLAM 5 MG/5 ML (VERSED) VIAL ONE (10:41)
[2021-10-26] MEDS ORDERED: fentaNYL INJ 100 MCG/2 ML AMP ONE (10:41)
[2021-10-26] MEDS ORDERED: VERAPAMIL 5 MG/2 ML (CALAN) VIAL IV ONE (10:46)
[2021-10-26] MEDS ORDERED: HEParin 1000 UNIT/ML (10ML VIAL) FOR BOLUS ONE (10:46)
[2021-10-26] MEDS ORDERED: NITRO DRIP 25000 MCG/D5W 250 ML IV ONE (10:47)
[2021-10-26] MEDS ORDERED: NS IV 1000 ML 1,000 ML IV SCH (11:45)
--- NOTE | 2021-10-26 11:47 | Cardiac Cath Report ---
CARDIAC CATHETERIZATION DATE OF PROCEDURE: 10/26/2021 INDICATION: Coronary artery disease with unstable angina. HISTORY: The patient is a 41 year old male with a known history of coronary artery disease who suffered a myocardial infarction in 2016 that was treated with 1 drug-eluting stent to the mid left anterior descending coronary artery. He presented to our hospital with bilateral shoulder pain concerning for possible angina. He had negative troponin levels. He underwent an echocardiogram that showed mild left ventricular systolic dysfunction with an estimated ejection fraction of 40-45%. On 10/25 he underwent a nuclear stress test that showed a large, partially reversible mid to distal anterior and apical defect with a moderate amount of inducible ischemia with moderate left ventricular systolic dysfunction with a calculated ejection fraction of 31%. In light of these findings, he is now referred for further evaluation with a cardiac catheterization. PROCEDURES PERFORMED: 1. Left heart catheterization with hemodynamic measurements. 2. Diagnostic [place] coronary angiography. PROCEDURE DESCRIPTION: After informed consent and in the fasting state, left heart catheterization was performed through the right radial artery utilizing a 6 [place] system by percutaneous approach. Standard 5 [place] Lesley catheters were utilized for the diagnostic portion of the procedure. All catheters were exchanged over a guidewire. Following the procedure, a vascular band was applied to the radial artery access site and the sheath was removed with good hemostasis. RESULTS: HEMODYNAMICS: The aortic pressure was 136/86 mmHg. The left ventricular pressure was 143/0 mmHg with a left ventricular end diastolic pressure of 15 mmHg. There was no significant pressure gradient upon pullback across the aortic valve. CORONARY ANGIOGRAPHY: The coronary arteries are moderately calcified. Left main coronary artery: Free of significant disease. Left anterior descending coronary artery: There was a stent in the mid-segment which was free of significant disease. Left circumflex coronary artery: There was a 50% in the proximal segment and a 50% stenosis in the mid portion of the vessel proximal to the bifurcation of 2 obtuse marginal branches. The first obtuse marginal branch contained a long 50% stenosis proximally. The second obtuse marginal branch contained 2 sequential 80% stenoses with MEJIA-3 flow. Right coronary artery: Dominant and free of significant disease. IMPRESSION: 1. Mildly elevated left ventricular end diastolic pressure. 2. Patent stent in the mid left anterior descending coronary artery. 3. Severe calcific disease of the second obtuse marginal branch. 4. The patient is known to have mild to moderate left ventricular systolic dysfunction as outlined above. 5. I recommend staged intervention to the second obtuse marginal branch with atherectomy and stent placement. Certain portions of this document may have been dictated utilizing voice recognition technology. Inherent to this technology, typographical and grammatical errors may exist. As much as I am diligent to identify and correct these mistakes, some errors may remain in the document. PHAN MALDONADO JR, MD Oct 26, 2021 11:47
[2021-10-26] MEDS ORDERED: CLOPIDOGREL 300 MG (PLAVIX) TABLET PO NR (12:15)
--- NOTE | 2021-10-26 13:23 | Discharge Summary ---
Diagnosis/Chief Complaint Date of Admission Oct 24, 2021 at 07:50 Date of Discharge Admission Diagnosis Chest pain Primary Care No,Local Physician Discharge Diagnosis (1) Unstable angina Status: Acute (2) Hypertensive urgency (3) Cardiomyopathy (4) Mixed hyperlipidemia (5) Type 2 diabetes mellitus with complication (6) Cigarette smoker Discharge Summary Discharge Physical Exam Allergies: Coded Allergies: glipizide (Verified Adverse Reaction, Unknown, gi upset, 10/24/21) metformin (Verified Adverse Reaction, Unknown, gi upset, 10/24/21) Vitals & I&Os General Appearance: No Apparent Distress, WD/WN Cardiovascular: Regular Rate, Rhythm, No Murmur Neurologic/Psychiatric: Alert, Oriented x3 Hospital Course Pt was admitted to the hospital due to chest pain with a history of coronary artery disease. He had previously been admitted for a "stress heart attack" per family this year at an outside hospital. He was started on multiple medications then but due to side effects had stopped taking some. He fortunately had multiple negative troponins but given history had a stress test that was considered high risk. He then underwent cardiac cath with Dr Campbell. This revealed a patent stent but disease to the second obtuse marginal branch for which Dr Campbell recommended staged intervention as an outpatient. Echo was performed which revealed an EF of 40%. Heart failures medications were recommended as below. Unfortunately patient elected to leave the hospital against medical advice but had previously been given information for primary care follow up with local PCPs and follow up with Dr Campbell. He was found to have elevated blood sugars consistent with DM but elected treatment with diet and lifestyle and declined medications.Of note he was to have an appointment with Dr Emmanuel for erectile dysfunction during this hospital stay Dr Emmanuel was consulted to see him inpatient instead. Labs (last 24 hrs) Patient resulted labs reviewed. Pending Labs Imaging: Reviewed Imaging Report Discussion & Recommendations Discharge Planning: >30 minutes discharge planning Discharge Home Medications: Active Scripts Active Metoprolol Succinate 25 Mg Tab.er.24h 25 Mg PO DAILY Losartan Potassium 25 Mg Tablet 25 Mg PO DAILY Rosuvastatin Calcium 20 Mg Tablet 40 Mg PO HS Clopidogrel (Clopidogrel Bisulfate) 75 Mg Tablet 75 Mg PO DAILY Aspirin EC (Aspirin) 81 Mg Tablet. 81 Mg PO DAILY Reported Ibuprofen 200 Mg Capsule 400-600 Mg PO Q8H PRN Tadalafil 2.5 Mg Tablet 2.5 Mg PO UD PRN Instructions to patient/family Please see electronic discharge instructions given to patient. LUIS ANTONIO SOTO MD Oct 26, 2021 13:23
[2021-10-26] MEDS ORDERED: MTP25TSR PO (13:29)
[2021-10-26] MEDS ORDERED: CLOP75TA28 PO (13:29)
[2021-10-26] MEDS ORDERED: LOSA25TA41 PO (13:29)
[2021-10-26] MEDS ORDERED: ROSU20TA32 PO (13:29)
[2021-10-26] MEDS ORDERED: ASPI-1238 PO (13:29)
--- NOTE | 2021-10-26 13:32 | Discharge Inst-Simple/Standard ---
Discharge Inst-Standard Discharge Medications New, Converted or Re-Newed RX: Transmitted to Pharmacy Patient Instructions/Follow Up Plan of Care/Instructions/FU: Please continue to take your medications as written. Please follow up with your PCP when established and with Dr Campbell and Dr Emmanuel to follow up this hospital stay. Activity as Tolerated: Yes Discharge Diet: ADA Diet, Cardiac Diet Return to The Hospital For: Chest pain, shortness of breath, weakness, confusion, if you feel you are getting worse. LUIS ANTONIO SOTO MD Oct 26, 2021 13:32
[2021-10-27] MEDS ORDERED: CLOPIDOGREL 75 MG (PLAVIX) TABLET PO SCH (09:00)
== END 2021-10-26 15:37 | disposition home or self-care (01) ==
LOC: EDUNIT# 06:30 → ER 06:35 → UNDOADMOB 07:50 → 4TH 07:50 → CSD 10-26 13:00 → UNDODISOB 10-26 15:06
PROVIDERS: ADMIT Family Medicine; ATTEND Family Medicine
DX: I25.110 Atherosclerotic heart disease of native coronary artery with unstable angina pectoris (principal); I16.0 Hypertensive urgency; I42.9 Cardiomyopathy, unspecified; E78.2 Mixed hyperlipidemia; E11.8 Type 2 diabetes mellitus with unspecified complications; N52.9 Male erectile dysfunction, unspecified; E78.5 Hyperlipidemia, unspecified; I10 Essential (primary) hypertension; I25.2 Old myocardial infarction; F41.9 Anxiety disorder, unspecified; F17.210 Nicotine dependence, cigarettes, uncomplicated; Z95.5 Presence of coronary angioplasty implant and graft; Z79.84 Long term (current) use of oral hypoglycemic drugs; Z79.899 Other long term (current) drug therapy
CPT/HCPCS: 71045; 78452; 80048 ×2; 80053; 80061; 82947 ×3; 83036; 83735; 83874; 84484; 85025 ×2; 85027; 85610; 85730; 93005 ×3; 93017; 93041; 93306; 93458; 96374; 99284; A9502; C1894; G0378 ×2; 36415

== ENCOUNTER 2023-02-17 17:35 | Emergency (ER) | payer SELFPAY ==
[~2023-02-17] VITALS: Ht 190.5 cm; Wt 91.2 kg
[~2023-02-17 17:35] MED LIST: ASPI-1238 PO; ATOR40TA70 PO; CARV6.252 PO; CLOP75TA28 PO; IBUP-2185 PO; LISI20TA26 PO; LOSA25TA41 PO; MTP25TSR PO; ROSU20TA73 PO; TADA2.5T3 PO
[2023-02-17 17:36] VITALS: BP 114/78
[2023-02-17] MEDS ORDERED: LIDOCAINE 1% INJ 10 ML VIAL ONE (17:48)
--- NOTE | 2023-02-17 17:50 | ED Upper Extremity ---
General Chief Complaint: Laceration Stated Complaint: HAND LAC Nursing Triage Note: PT TO ED BY EMS WITH C/O L HAND LAC. PT CUT L HAND WITH KNIFE BLADE. REPORTS PT LOSSED CONSCIOUSNESS FOR APPROX 5-10 MINUTES. UTD ON TETANUS. Source: patient Exam Limitations: no limitations History of Present Illness Date Seen by Provider: Feb 17, 2023 Time Seen by Provider: 17:48 Initial Comments Patient is a 42-year-old male who presents ED laceration to his left dorsum hand. 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 Patient states the knife slipped causing a laceration to his left dorsum hand between his first and second digit. Bleeding profusely. Bleeding co ntrolled direct pressure by . Normal active range of motion the digits. Bleeding controlled on arrival. EMS was contacted. Patient supposedly had a syncopal episode once EMS showed up. This lasted for about 5 to 10 minutes. Patient alert and orient x4 on arrival. Up-to-date on his tetanus within the past 5 years. Normal range of motion of his digits. No numbness and tingling. Patient is currently on Plavix. Allergies and Home Medications Allergies Coded Allergies: glipizide (Verified Adverse Reaction, Unknown, gi upset, 10/24/21) metformin (Verified Adverse Reaction, Unknown, gi upset, 10/24/21) Patient Home Medication List Home Medication List Reviewed: Yes Aspirin (Aspirin EC) 81 Mg Tablet.dr, 81 MG PO DAILY Prescribed by: LUIS ANTONIO SOTO on 10/26/21 1329 Clopidogrel Bisulfate (Clopidogrel) 75 Mg Tablet, 75 MG PO DAILY Prescribed by: LUIS ANTONIO SOTO on 10/26/21 1329 Hydrocodone/Acetaminophen (Hydrocodone-Acetamin 5-325 mg) 5 Mg-325 Mg Tablet, 1 TAB PO Q4H PRN for PAIN-MODERATE (5-7) Prescribed by: DAVID PERRY on 02/17/23 181 Ibuprofen (Ibuprofen) 200 Mg Capsule, 400-600 MG PO Q8H PRN for PAIN-MILD (1-4), (Reported) Entered as Reported by: LINDSEY KAY on 10/24/21 1500 Losartan Potassium (Losartan Potassium) 25 Mg Tablet, 25 MG PO DAILY Prescribed by: LUIS ANTONIO SOTO on 10/26/21 1329 Metoprolol Succinate (Metoprolol Succinate) 25 Mg Tab.er.24h, 25 MG PO DAILY Prescribed by: LUIS ANTONIO SOTO on 10/26/21 1329 Rosuvastatin Calcium (Rosuvastatin Calcium) 20 Mg Tablet, 40 MG PO HS Prescribed by: LUIS ANTONIO SOTO on 10/26/21 1329 Tadalafil (Tadalafil) 2.5 Mg Tablet, 2.5 MG PO UD PRN for ED, (Reported) Entered as Reported by: ILNDSEY KAY on 10/24/21 1500 Review of Systems Constitutional: No chills, No diaphoresis EENTM: No ear pain, No blurred vision, No double vision Respiratory: No cough, No dyspnea on exertion Cardiovascular: No chest pain Gastrointestinal: No abdominal pain, No diarrhea, No nausea, No vomiting Genitourinary: No decreased output, No discharge Musculoskeletal: No back pain, No joint pain Skin: change in color (2 cm laceration to left dorsum hand) All Other Systems Reviewed Negative Unless Noted: Yes Past Sppwgdw-Ogbfek-Oizche Hx Immunizations Up To Date First/Initial COVID19 Vaccinat: Unvaccinated Second COVID19 Vaccination Johnathan: Unvaccinated Third COVID19 Vaccination Date: Unvaccinated Past Medical History Coronary Stent Heart Attack, High Cholesterol, Hypertension Diabetes, Non-Insulin dep Physical Exam Vital Signs Vital Signs - First Documented 02/17/23 17:36 Temp 36.6 Pulse 72 Resp 16 B/P (MAP) 114/78 (90) Pulse Ox 94 O2 Delivery Room Air Capillary Refill : Less Than 3 Seconds Height, Weight, BMI Height: '" Weight: lbs. oz. kg; 25.00 BMI Method: General Appearance: WD/WN, no apparent distress HEENT: PERRL/EOMI, normal ENT inspection, TMs normal, pharynx normal Neck: non-tender, full range of motion, supple Cardiovascular: regular rate, rhythm, no edema, no gallop, no JVD Respiratory: chest non-tender, lungs clear, normal breath sounds, no respiratory distress, no accessory muscle use Gastrointestinal: normal bowel sounds, non tender, soft, no organomegaly Back: normal inspection, no CVA tenderness Hand: Left, laceration (2 cm laceration of the web between the first and second digit. Normal active range of motion of the digits. 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 Bleeding controlled. Adipose involvement. No muscular or tendon vomit.) Procedures/Interventions Wound Location: Upper Extremities Other Wound Location left hand Wound Length (cm): 2 Wound's Depth, Shape: superficial, sub Q Wound Explored: clean Irrigated w/ Saline (ccs): 300 Betadine Prep?: Yes Anesthesia: 1% Lidocaine Volume Anesthetic (ccs): 6 Suture: Ethlion Suture Size: 4-0 Number of Sutures: 7 Layer Closure?: 1 Progress/Results/Core Measures Results/Orders My Orders Orders - PRASAD NOWAK Lidocaine 1% Inj 10 Ml (Xylocaine 1% Inj (02/17/23 17:48) Rx-Hydrocodone/Apap 5-325 Mg (Rx-Vicodin (02/17/23 18:30) Medications Given in ED Current Medications Medications Dose Ordered Sig/Lorie Route Start Time Stop Time Status Last Admin Dose Admin Acetaminophen/ Hydrocodone Bitart 1 ea Q4H PRN PO 02/17/23 18:30 02/17/23 18:50 DC 02/17/23 18:34 1 EA Lidocaine HCl 10 ml STK-MED ONCE .ROUTE 02/17/23 17:48 02/17/23 17:51 DC 02/17/23 17:54 10 ML Vital Signs/I&O 02/17/23 17:36 Temp 36.6 Pulse 72 Resp 16 B/P (MAP) 114/78 (90) Pulse Ox 94 O2 Delivery Room Air Blood Pressure Mean: 90 Departure Communication (PCP) On exam bleeding controlled of the left dorsal hand. 2 cm laceration with adipose involvement of the web between the first and second digit. Normal active range of motion of the digits. No obvious tendon or muscular involvement. Bleeding was controlled. Patient is up-to-date on his tetanus within the past 5 years. Patient received a dose of hydrocodone for pain. Supposedly once EMS was at the scene patient had a syncopal episode. Likely vasovagal secondary to the blood. On arrival neurovascular intact. GCS of 15. Alert and orient x4. No chest pain or shortness of breath. Not currently on Plavix but has been on Plavix in the past. Takes a baby aspirin per day. Vital signs remained stable. Neurovascular intact. Remove sutures in 10 days. Provided Constantine wrap for support. If increased redness or swelling to return back to ED. follow-up your PCP in 2 days for reevaluation. Discuss brace for support Impression Primary Impression: Hand laceration Disposition: 01 HOME, SELF-CARE Condition: Stable Departure-Patient Inst. Decision time for Depature: 17:50 Referrals: NO,LOCAL PHYSICIAN (PCP/Family) Primary Care Physician Patient Instructions: Laceration Repair With Stitches ED Add. Discharge Instructions: Use Constantine wrap for support. Remove sutures in 10 to 12 days. Topical Neosporin twice a day. Avoid as much movement over the next week to allow healing. If i ncreased redness or swelling to return back to ED. All discharge instructions reviewed with patient and/or family. Voiced under standing. Scripts Hydrocodone/Acetaminophen (Hydrocodone-Acetamin 5-325 mg) 5 Mg-325 Mg Tablet 1 TAB PO Q4H PRN for PAIN-MODERATE (5-7), #6 TAB Prov: PRASAD NOWAK 02/17/23 PRASAD NOWAK Feb 17, 2023 17:50
[2023-02-17] MEDS ORDERED: ACHD5005 PO (18:12)
== END 2023-02-17 18:35 | disposition home or self-care (01) ==
LOC: EDUNIT# 17:35 → ER 17:37
DX: S61.412A Laceration without foreign body of left hand, initial encounter (principal); Z79.02 Long term (current) use of antithrombotics/antiplatelets; Z28.310 Unvaccinated for COVID-19; W26.0XXA Contact with knife, initial encounter
CPT/HCPCS: 12001